=== PATIENT | female | born 1970 | race Caucasian/White ===

== ENCOUNTER 2021-02-14 08:38 | Outpatient (CLI) | payer BC | END 2021-02-14 08:39 | disposition home or self-care (01) | LOC: CSHMAMMO 08:38 | PROVIDERS: ATTEND Family Medicine | DX: Z12.31 Encounter for screening mammogram for malignant neoplasm of breast (principal) | CPT/HCPCS: 77063; 77067 ==

== ENCOUNTER 2024-03-19 22:25 | Emergency (ER) | payer BC ==
[2024-03-19] MEDS ORDERED: Boostrix 0.5 ML (Tdap) VIAL (>/=7 yrs of age) ONE (22:48)
[2024-03-19] MEDS ORDERED: Doxycycline 100 MG CAP PO SCH (23:15)
== END 2024-03-19 23:19 | disposition home or self-care (01) ==
LOC: CSHERS 22:25
DX: S51.852A Open bite of left forearm, initial encounter (principal); S51.812A Laceration without foreign body of left forearm, initial encounter; W54.0XXA Bitten by dog, initial encounter
CPT/HCPCS: 12001; 90471; 90715